=== PATIENT | male | born 1960 | race Caucasian/White ===

== ENCOUNTER 2022-04-02 11:49 | Day surgery (SDC) | payer OTHER ==
[~2022-04-02] VITALS: Ht 180.3 cm; Wt 86.4 kg
[2022-04-02] MEDS ORDERED: ROSUVASTATIN CAL5 MG PO (12:28)
[2022-04-02] MEDS ORDERED: LISINOPRIL10 MG PO (12:28)
[2022-04-02] MEDS ORDERED: GLIPIZIDE5 MG PO (12:29)
[2022-04-02] MEDS ORDERED: METFORMIN HCL500 MG PO (12:30)
--- NOTE | 2022-04-02 15:43 | NUR ---
04/02/22 1543 Gracia Gates 1537- PT ARRIVES TO PACU AWAKE AND TALKING. PT REPORTS NO PAIN OR NAUSEA. RESP EVEN AND UNLABORED. OXYGEN SAT HIGH 90'S ON 2L VIA CO2 NC. 1543- OXYGEN TITRATED OFF.
--- NOTE | 2022-04-07 09:35 | OR ---
[facility] [address] [place], [place] [address] Signed DATE OF OPERATION: 04/02/2022 SURGEON: Nita Granado MD PREOPERATIVE DIAGNOSES: 1. Colon screening. 2. Family history of colon cancer in father age 80. POSTOPERATIVE DIAGNOSES: Polyps x4, sigmoid diverticulosis. PROCEDURE: Total colonoscopy to cecum with cold morcellation polypectomy x2 and hot snare polypectomy x2. ANESTHESIA: Intravenous sedation; fentanyl 100 mcg and Versed 9 mg. 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 He is referred by JYOTHI Burger of [place], [place] for screening colonoscopy. He does have family history of colon cancer in his father at age 80. He has generally no symptoms, but his bowel prep did have some blood per rectum. He understands risk of bleeding, infection, and perforation related to colonoscopy and wished to proceed. FINDINGS: The prep was good. Complete colonoscopy was undertaken to the cecum without question. A diminutive polyp of the cecum which was excised and a small sessile polyp of the ascending colon also excised, both with cold morcellation technique. There was a somewhat sessile polyp at approximately 40 cm and another large pedunculated polyp at 20 cm, both of them were excised with snare technique. DESCRIPTION OF PROCEDURE: The patient was brought to the endoscopy suite and placed in lateral decubitus position, given intravenous sedation to the point of slurred speech and nystagmus. Digital rectal examination was normal. The Olympus video colonoscope was passed in the rectum and manipulated into the sigmoid where numerous diverticula were noted. The scope was able to visualize at approximately 20 to 30 cm. A large pedunculated hypervascular polyp. This was left in situ for the time being. The scope was ultimately advanced to the Electronically Signed By: NITA GRANADO MD 04/07/22 0935 PATIENT NAME: DIXIE CARDENAS OPERATIVE REPORT DATE OF : 56 REPORT #: [id number] PHYSICIAN: NITA GRANADO MD PCP: DEAN TORRES MD REPORT IS CONFIDENTIAL AND NOT TO BE RELEASED WITHOUT AUTHORIZATION [facility] [address] [place], [place] [address] Signed cecum. The ileocecal valve and appendiceal orifice were normal. A diminutive polyp of the cecum was excised with cold morcellation technique. The scope was withdrawn in the mid ascending colon, another sessile polyp bigger in size was excised with cold morcellation technique as well. Further withdrawal confirmed diverticula of the left colon. At approximately 40 cm, was a sessile polyp that was relatively small, this was excised with combination of hot snare polypectomy technique and cold morcellation. The scope was further withdrawn and at 20 cm was the large pedunculated polyp with hypervascular head on it. This was excised with hot snare polypectomy technique with excellent hemostasis and complete excision. This was removed with a Wyman net. The scope was withdrawn and there were no other findings of note. Scope was reintroduced and examination of the polypectomy site showed good hemostasis and diverticula once again noted in the sigmoid. Further withdrawal allowed for retroflexed view, which was normal. Scope was removed and the patient was taken to recovery room in good condition. CONCLUDING DIAGNOSES: 1. Polyps x4. 2. Diverticulosis. PLAN: Recommend repeat colonoscopy no later than three years, sooner if symptoms. We will closely observe to see if there is any sign of malignancy in the large polyp. The large polyp at esophagus is approximately 2 cm. MD SHELLEY Riggs/LAKE /[id number] cc: ELIE BurgerP, [place], [place] Copies: ~ Electronically Signed By: NITA GRANADO MD 04/07/22 0935 PATIENT NAME: DIXIE CARDENAS OPERATIVE REPORT DATE OF : 56 REPORT #: [id number] PHYSICIAN: NITA GRANADO MD PCP: DEAN TORRES MD REPORT IS CONFIDENTIAL AND NOT TO BE RELEASED WITHOUT AUTHORIZATION
--- NOTE | 2022-04-07 22:30 | PATH ---
[facility] [address] [place], [place] [address] Signed SPECIMEN(S): A CECAL POLYP SPECIMEN(S): B ASCENDING/RIGHT COLON POLYP SPECIMEN(S): C COLON POLYP AT 42 CM SPECIMEN(S): D COLON POLYP AT 20 CM SPECIMEN SOURCE: A. CECAL POLYP B. ASCENDING/RIGHT COLON POLYP C. COLON POLYP AT 42 CM D. COLON POLYP AT 20 CM CLINICAL HISTORY: Hx of family CA/polyps, screening. Post: Colon polyps x 4, diverticulosis. FINAL PATHOLOGIC DIAGNOSIS: A. Colon, cecum, polypectomy: - Benign colonic mucosa with prominent intramucosal lymphoid aggregates. - No evidence of neoplasia. B. Colon, ascending/right, polypectomy: - Multiple fragments of tubular adenoma. - There is no evidence of high-grade dysplasia or malignancy. C. Colon, 42 cm, polypectomy: - No significant histopathology. - There is no evidence of neoplasia. D. Colon, 20 cm, polypectomy: - Multiple fragments of tubular adenoma. - There is no evidence of high-grade dysplasia or malignancy. COMMENT: Regarding specimen A, examination of sections from three different levels of the tissue block discloses the presence of benign intramucosal lymphoid aggregates. Intramucosal lymphoid aggregates can sometimes appear as polyps endoscopically. They have no clinical significance. There is no evidence of dysplasia or malignancy. Regarding specimen C, the sections from the specimen are architecturally normal without crypt distortion. There is no acute or chronic inflammation. There are no abnormal infiltrates. There is no evidence of inflammatory, hyperplastic or adenomatous polyps. TWK:arthur:C2NR MICROSCOPIC EXAMINATION: PATIENT NAME: DIXIE CARDENAS PATHOLOGY DATE OF : 56 REPORT #: [id number] PHYSICIAN: NICOLLE STOCKTON PCP: DEAN TORRES MD REPORT IS CONFIDENTIAL AND NOT TO BE RELEASED WITHOUT AUTHORIZATION [facility] [address] [place], [place] [address] Signed Histologic sections of all submitted blocks are examined by light microscopy. These findings, together with the gross examination, support the pathologic diagnosis. GROSS DESCRIPTION: Four specimens are received in four containers, labeled "GB." A. The specimen, labeled "1 cecal polyp," is received in formalin and consists of two fragments españa soft tissue measuring in a range of 0.3-0.6 cm in greatest dimension. Entirely submitted in cassette A. B. The specimen, labeled "2 ascending/right colon polyp," is received in formalin and consists of four fragments of españa soft tissue measuring 0.2-0.5 cm in greatest dimension. Entirely submitted in cassette B. C. The specimen, labeled "#3 colon polyp at 42 cm," is received in formalin and consists of four fragments of españa soft tissue measuring 0.2-0.5 cm in greatest dimensions. Entirely submitted in cassette C. D. The specimen, labeled "#4 colon polyp at 20 cm," is received in formalin and consists of two fragments of españa-brown soft tissue measuring range of 0.3-1.4 cm in greatest dimension. The largest fragment is serially sectioned. Tongue submitted in cassettes D1 and D2. HH (under the direct supervision of a pathologist) The Gross Description was prepared using a voice recognition system. The report was reviewed for accuracy; however, sound-alike word errors, addition and/or deletions may occur. If there is any question about this report, please contact Client Services. PERFORMING LABORATORY: The technical component was performed by [facility], [address] [place] [id number] (CLIA# [id number]). The professional interpretation was performed by [facility], [facility], [address] [place] [address] (CLIA#: [id number]). Diagnostician: Raoul Bravo MD Pathologist Electronically Signed 04/07/2022 PATIENT NAME: DIXIE CARDENAS PATHOLOGY DATE OF : 56 REPORT #: [id number] PHYSICIAN: NICOLLE STOCKTON PCP: DEAN TORRES MD REPORT IS CONFIDENTIAL AND NOT TO BE RELEASED WITHOUT AUTHORIZATION
== END 2022-04-02 16:12 | disposition home or self-care (01) ==
LOC: OPS 11:49 → DS 11:49 → OPS 13:00
PROVIDERS: ATTEND Surgery
PROC: 0D5E8ZZ Destruction of Large Intestine, Via Natural or Artificial Opening Endoscopic (ICD-10-PCS; principal; 2022-04-02 13:00)
DX: Z12.11 Encounter for screening for malignant neoplasm of colon (principal); D12.2 Benign neoplasm of ascending colon; K57.30 Diverticulosis of large intestine without perforation or abscess without bleeding; I10 Essential (primary) hypertension; E11.9 Type 2 diabetes mellitus without complications; I25.2 Old myocardial infarction; Z79.84 Long term (current) use of oral hypoglycemic drugs; Z85.46 Personal history of malignant neoplasm of prostate; Z80.0 Family history of malignant neoplasm of digestive organs; Z95.5 Presence of coronary angioplasty implant and graft; Z92.3 Personal history of irradiation
CPT/HCPCS: 99153; G0500; J2250; J3010; J7121